=== PATIENT | male | born 1990 | race Caucasian/White ===

== ENCOUNTER 2016-08-09 07:43 | Emergency (ER) | payer BC ==
[~2016-08-09] VITALS: Ht 180.3 cm; Wt 84.1 kg
[~2016-08-09 07:43] MED LIST: LAMICTAL 25MG T25 MG PO; NO HOME MEDICATIONS; PRIL40 PO; ULTRAM 50MG TAB50 MG PO; VENTOLIN0.09 MG IH; XANAX 0.5MG0.5 MG PO; ZOFRAN8 MG PO; ZOLOFT 50MG50 MG PO
[2016-08-09] MEDS ORDERED: CELEXA40 MG PO (07:47)
[2016-08-09] MEDS ORDERED: SEROQUEL50 MG PO (07:47)
[2016-08-09] MEDS ORDERED: AMOXICILLIN 50500 MG PO (08:02)
[2016-08-09] MEDS ORDERED: ULTRAM 50MG TAB50 MG PO (08:02)
[2016-08-09 08:17] VITALS: BP 142/96; PULSE 81; TEMP 99
== END 2016-08-09 08:17 | disposition home or self-care (01) ==
LOC: COL.ER 07:43
DX: K08.89 Other specified disorders of teeth and supporting structures (principal); F17.210 Nicotine dependence, cigarettes, uncomplicated

== ENCOUNTER → 2016-08-13 | Outpatient (CLI) | payer BC ==
[~2016-08-13] MED LIST changes: +AMOXICILLIN 50500 MG PO; +AMOXICILLIN 8751 TAB PO; +CELEXA40 MG PO; +SEROQUEL50 MG PO
== END ==
LOC: COL.RAD 14:00
DX: K02.9 Dental caries, unspecified (principal)
CPT/HCPCS: Q9967

== ENCOUNTER 2016-08-16 06:58 | Day surgery (SDC) | payer BC ==
[2016-08-16] VITALS (8 sets, daily range): BP systolic 111–122; BP diastolic 48–67; PULSE 53–76; TEMP 97.5–98.3
[~2016-08-16] VITALS: Ht 180.3 cm; Wt 82.9 kg
[~2016-08-16 06:58] MED LIST changes: -AMOXICILLIN 8751 TAB PO
[2016-08-16] MEDS ORDERED: AMOXICILLIN 8751 TAB PO (08:04)
== END 2016-08-16 14:10 | disposition home or self-care (01) ==
LOC: SDCO 06:58
DX: K02.9 Dental caries, unspecified (principal); K01.1 Impacted teeth; F17.210 Nicotine dependence, cigarettes, uncomplicated
CPT/HCPCS: J0330; J1100; J2270; J2405; J2704; J3010; J7120

== ENCOUNTER 2016-11-14 02:22 | Emergency (ER) | payer BC ==
[~2016-11-14] VITALS: Ht 180.3 cm; Wt 83.2 kg
[~2016-11-14 02:22] MED LIST changes: +AMOXICILLIN 8751 TAB PO
[2016-11-14 02:24] VITALS: BP 155/85; TEMP 97.8
[2016-11-14 03:13] VITALS: PULSE 96
== END 2016-11-14 03:13 | disposition home or self-care (01) ==
LOC: COL.ER 02:22
DX: L29.9 Pruritus, unspecified (principal); S30.811A Abrasion of abdominal wall, initial encounter; S40.811A Abrasion of right upper arm, initial encounter; X58.XXXA Exposure to other specified factors, initial encounter; J45.909 Unspecified asthma, uncomplicated; F41.9 Anxiety disorder, unspecified; F32.9 Major depressive disorder, single episode, unspecified; F17.210 Nicotine dependence, cigarettes, uncomplicated
CPT/HCPCS: J1100

== ENCOUNTER 2017-02-23 15:42 | Emergency (ER) | payer BC ==
[~2017-02-23] VITALS: Ht 180.3 cm; Wt 87.7 kg
[2017-02-23] MEDS ORDERED: PAMELOR 25MG25 MG PO (15:55)
[2017-02-23 16:09] VITALS: TEMP 98.2
[2017-02-23 17:26] LABS: BASO # 0.1 (0.0-0.2); EOS # 0.7 (0.0-0.7); EOS % 9.2 % (0-4.0); GRAN # 4.6 (1.4-6.5); GRAN % 57.9 % (42.2-75.2); HEMATOCRIT 43.8 % (42.0-52.0); HEMOGLOBIN 15.4 g/dl (13.5-18.0); LYMPH % 24.3 % (20.0-51.0); MEAN CELL VOLUME 97 fl (80.0-100.0); MEAN CORPUSCULAR HEMOGLOBIN 34 pg (27.0-31.0); MEAN CORPUSCULAR HGB CONC 35 g/dl (33.0-37.0); MEAN PLATELET VOLUME 10.3 fl (7.4-10.4); MONO # 0.6 (0.1-0.6); MONO % 6.9 % (1.7-9.3); PLATELET COUNT 210 K/mm3 (130-400); RED BLOOD COUNT 4.53 M/mm3 (4.20-5.60); REDCELL DISTRIBUTION WIDTH-CV 12.1 % (11.5-14.5)
[2017-02-23 17:36] LABS: CALCIUM 9.4 mg/dL (8.4-10.2); CREATININE, serum 1.01 mg/dL (0.66-1.25); POTASSIUM 4.2 mmol/L (3.4-5.0)
[2017-02-23 18:03] LABS: PH 6 (5-8); SQUAMOUS EPITHELIAL 0-2 /hpf; URINE APPEARANCE Hazy; URINE BACTERIA None Seen /hpf; URINE BILIRUBIN Negative (NEGATIVE); URINE BLOOD 3+ (NEGATIVE); URINE COLOR Yellow; URINE GLUCOSE Negative (NEGATIVE); URINE KETONE Negative (NEGATIVE); URINE RBC >50 /hpf; URINE UROBILINOGEN Negative (NEGATIVE); URINE WBC 0-2 /hpf
[2017-02-23] MEDS ORDERED: FLOMAX 0.40.4 MG/CAP PO (18:21)
[2017-02-23] MEDS ORDERED: NORCO 325 MG-51 TAB PO (18:21)
[2017-02-23 18:35] VITALS: BP 128/88; PULSE 75
== END 2017-02-23 18:35 | disposition home or self-care (01) ==
LOC: COL.ER 15:42
PROVIDERS: Emergency Medicine
DX: N20.1 Calculus of ureter (principal); F41.9 Anxiety disorder, unspecified; F32.9 Major depressive disorder, single episode, unspecified; F17.210 Nicotine dependence, cigarettes, uncomplicated

== ENCOUNTER 2017-03-22 16:16 | Emergency (ER) | payer BC ==
[~2017-03-22] VITALS: Ht 180.3 cm; Wt 86.4 kg
[~2017-03-22 16:16] MED LIST changes: +FLOMAX 0.40.4 MG/CAP PO; +NORCO 325 MG-51 TAB PO; +PAMELOR 25MG25 MG PO
[2017-03-22 16:18] VITALS: BP 136/71; TEMP 97.9
[2017-03-22] MEDS ORDERED: CIPRO 500MG TA500 MG PO (16:22)
[2017-03-22 16:42] LABS: COLLECTION METHOD CLEAN CATCH
[2017-03-22 16:53] LABS: BASO # 0.1 (0.0-0.2); BASO % 1.2 % (0.0-2.0); EOS # 0.6 (0.0-0.7); EOS % 9.1 % (0-4.0); GRAN # 4.1 (1.4-6.5); HEMATOCRIT 40.4 % (42.0-52.0); HEMOGLOBIN 14.6 g/dl (13.5-18.0); LYMPH # 1.6 (1.2-3.4); LYMPH % 23.1 % (20.0-51.0); MEAN CELL VOLUME 96 fl (80.0-100.0); MEAN CORPUSCULAR HEMOGLOBIN 35 pg (27.0-31.0); MEAN CORPUSCULAR HGB CONC 36 g/dl (33.0-37.0); MEAN PLATELET VOLUME 10.1 fl (7.4-10.4); MONO # 0.5 (0.1-0.6); MONO % 7.3 % (1.7-9.3); PLATELET COUNT 200 K/mm3 (130-400); RED BLOOD COUNT 4.19 M/mm3 (4.20-5.60); WHITE BLOOD COUNT 6.9 K/mm3 (4.8-10.8)
[2017-03-22 17:03] LABS: MUCOUS Present /lpf; PH 5 (5-8); SQUAMOUS EPITHELIAL 0-2 /hpf; URINE APPEARANCE Cloudy; URINE BACTERIA None Seen /hpf; URINE BILIRUBIN Negative (NEGATIVE); URINE BLOOD 3+ (NEGATIVE); URINE COLOR Yellow; URINE GLUCOSE Negative (NEGATIVE); URINE KETONE Negative (NEGATIVE); URINE LEUKOCYTE ESTERASE Negative (NEGATIVE); URINE PROTEIN(semi-quant) 2+ (NEGATIVE); URINE RBC >50 /hpf; URINE UROBILINOGEN Negative (NEGATIVE)
[2017-03-22 17:04] LABS: ANION GAP 8 mmol/L (7-16); BLOOD UREA NITROGEN 10 mg/dL (9-20); CALCIUM 9.2 mg/dL (8.4-10.2); CARBON DIOXIDE 26 mmol/L (22-30); CHLORIDE 100 mmol/L (98-107); CREATININE, serum 1.08 mg/dL (0.66-1.25); GLUCOSE 91 mg/dL (74-106); SODIUM 135 mmol/L (137-145)
[2017-03-22 17:15] LABS: C-REACTIVE PROTEIN < 0.5 mg/dL (0.0-0.9)
[2017-03-22] MEDS ORDERED: NORCO 325 MG-51 TAB PO (17:26)
[2017-03-22 17:37] VITALS: PULSE 78
[2017-03-22 20:03] LABS: CHLAMYDIA/TRACH by PCR Male NOT DETECTED; Neisseria Gon by PCR Male NOT DETECTED
== END 2017-03-22 17:37 | disposition home or self-care (01) ==
LOC: COL.ER 16:16
PROVIDERS: Emergency Medicine
DX: N13.2 Hydronephrosis with renal and ureteral calculous obstruction (principal); Z87.442 Personal history of urinary calculi